=== PATIENT | female | born 1975 | race Caucasian/White ===

== ENCOUNTER 2021-04-30 18:11 | Emergency (ER) | payer OTHER ==
[~2021-04-30] VITALS: Ht 152.4 cm; Wt 74.8 kg
[~2021-04-30 18:11] MED LIST: ALBU2.5V8 IH
[2021-04-30] MEDS: IV NORMAL SALINE 1,000ML 1,000 ML IV ONE ×2 (18:30→19:30)
--- NOTE | 2021-04-30 18:32 | PHYS DOC ---
Past History Past Medical History: Asthma Past Surgical History: Alcohol Use: Occasionally Drug Use: None General Adult EDM: Chief Complaint: SHORTNESS OF BREATH HPI: HPI: 45-year-old female presents via EMS as a Covid positive patient with shortness of breath. The patient was diagnosed 4 days ago. She was seen at [facility] and admitted for a short period of time. She states that she was discharged with antibiotics for UTI, steroids, and some kind of blood thinner. She is not sure the names of the medications. She presents today because she has had difficulty eating and drinking anything. She feels more lethargic and tired. She is not sure if she has had a fever at home. Review of Systems: Review of Systems: Constitutional: Denies fever or chills. Body aches, fatigue. Eyes: Denies change in visual acuity HENT: Denies nasal congestion or sore throat Respiratory: shortness of breath Cardiovascular: Denies chest pain or edema GI: Denies abdominal pain, nausea, vomiting, bloody stools or diarrhea : Denies dysuria Musculoskeletal: Denies back pain or joint pain Integument: Denies rash Neurologic: Denies headache, focal weakness or sensory changes Endocrine: Denies polyuria or polydipsia Lymphatic: Denies swollen glands Psychiatric: Denies depression or anxiety Allergies: Allergies: Allergies Coded Allergies Type Severity Reaction Last Updated Verified Penicillins Allergy Intermediate Rash 06/27/14 Yes Physical Exam: PE: Constitutional: Well developed, well nourished, obese, no acute distress, pale. [] HENT: Normocephalic, atraumatic, bilateral external ears normal, oropharynx moist, no oral exudates, nose normal. [] Eyes: PERRLA, EOMI, conjunctiva normal, no discharge. [] Neck: Normal range of motion, no tenderness, supple, no stridor. [] Cardiovascular: Heart rate regular rhythm, no murmur [] Lungs & Thorax: Bilateral breath sounds clear to auscultation [] Abdomen: Bowel sounds normal, soft, no tenderness, no masses, no pulsatile masses. [] Skin: Warm, dry, no erythema, no rash. [] Back: No tenderness, no CVA tenderness. [] Extremities: No tenderness, no cyanosis, no clubbing, ROM intact, no edema. [] Neurologic: Alert and oriented X 3, normal motor function, normal sensory function, no focal deficits noted. [] Psychologic: Affect normal, judgement normal, mood normal. [] EKG: EKG: Sinus rhythm, rate 112, normal axis, diffuse mild ST elevation. [] Radiology/Procedures: Radiology/Procedures: [] Impressions: CTA Chest with contrast: Clinical History: Reason: SOB, tachycardia, Covid positive, + CTACHEST X 4 DAYS AGO / Spl. Instructions: / History: Shortness of breath. Axial helical images of the chest were obtained after the administration of 100 cc of IV Isovue-370 and timed appropriately for a pulmonary arterial study. Conventional axial reconstruction was performed in addition to coronal, sagittal and bilateral oblique MIP (maximum intensity projection). This study was ordered to detect possible pulmonary embolism. There are no filling defects to suggest pulmonary embolism. There is patchy opacity in the lung bases. There is a small pericardial effusion. There is no mediastinal or hilar lymphadenopathy. The thoracic aorta appears normal. Impression: 1. No evidence of pulmonary embolism. 2. Mild basilar pulmonary infiltrates could be early Covid pneumonia. 3. Mild pericardial effusion. Pericarditis is possible. Clinical correlation is suggested. End impression PQRS Compliance Statement: One or more of the following individualized dose reduction techniques were utilized for this examination: 1. Automated exposure control 2. Adjustment of the mA and/or kV according to patient size 3. Use of iterative reconstruction technique Electronically signed by: Simeon Tucker III, MD (04/30/2021 7:13 PM) [facility] DICTATED AND SIGNED BY: SIMEON TUCKER III, MD DATE: 04/30/211903 CC: BRYAN RAY DO; PCP,NO ~MTH0 0 Heart Score: C/O Chest Pain: N/A Risk Factors: Risk Factors: DM, Current or recent (<one month) smoker, HTN, HLP, family history of CAD, obesity. Risk Scores: Score 0 - 3: 2.5% MACE over next 6 weeks - Discharge Home Score 4 - 6: 20.3% MACE over next 6 weeks - Admit for Clinical Observation Score 7 - 10: 72.7% MACE over next 6 weeks - Early Invasive Strategies Course & Med Decision Making: Course & Med Decision Making Pertinent Labs and Imaging studies reviewed. (See chart for details) Given the patient's elevated heart rate, low blood pressure and Covid diagnosis I have ordered a repeat CT angiogram. It does not show pulmonary embolus, but she does have a small pericardial effusion suggestive of pericarditis. I will transfer the patient back to [facility] for admission and management. I have ordered 2 L of normal saline for the patient's tachycardia and low blood pressure. She is mapping at 70. EKG has some diffuse ST elevation suggestive of pericardial irritation. The patient does have an elevated white count of 15.9. Lactic acid and blood cultures have been drawn. The patient's lactic acid is 4.6. Her troponin is 0.629. I spoke with Dr. Storm and he has accepted patient for transfer admission. He has requested we cover her with Zosyn. She has an unknown penicillin allergy from childhood. I do not believe this is a contraindication to Zosyn. Her blood pressure has improved somewhat to 96/70 with a MAP of 80. The patient has maintained similar blood pressures throughout her stay in the ER. She is now transferring by ambulance to [facility]. [] Bernice Disclaimer: Bernice Disclaimer: This electronic medical record was generated, in whole or in part, using a voice recognition dictation system. Departure Departure: Impression: Primary Impression: COVID-19 Additional Impressions: Pericardial effusion Pericarditis Qualified Codes: I30.1 - Infective pericarditis Elevated troponin I level Disposition: 02 SHORT TERM HOSPITAL Condition: GUARDED Referrals: PCP,NO (PCP) BRYAN RAY DO Apr 30, 2021 18:32
[2021-04-30] MEDS ORDERED: CONTRAST GIVEN. MC PRN (18:45)
[2021-04-30] MEDS: IOHEXOL 350 MG/ML 100 ML VIAL. IV ONE (18:50)
[2021-04-30 19:08] LABS: BASO % 0 % (0-3); EOS % 0 % (0-3); HEMOGLOBIN 13.3 g/dL (12.0-15.5); LYMPH # 0.9 x10^3/uL (1.0-4.8); LYMPH % 6 % (24-48); MEAN CORPUSCULAR HEMOGLOBIN 30 pg (25-35); MEAN CORPUSCULAR HGB CONC 33 g/dL (31-37); MEAN CORPUSCULAR VOLUME 90 fL (79-100); MONO # 0.9 x10^3/uL (0.0-1.1); MONO % 6 % (0-9); NEUT % 88 % (31-73); PLATELET COUNT 342 x10^3/uL (140-400); RED BLOOD COUNT 4.48 x10^6/uL (3.50-5.40); RED CELL DISTRIBUTION WIDTH 13.2 % (11.5-14.5); WHITE BLOOD COUNT 15.9 x10^3/uL (4.0-11.0)
--- NOTE | 2021-04-30 19:08 | RAD ---
EXAM: AP View of the chest DATE: 04/30/2021 6:23 PM INDICATION: Reason: SHORTNESS OF BREATH, COVID + / Spl. Instructions: / History: COMPARISON: No Prior FINDINGS: The heart is not enlarged. Mediastinal and hilar contours are normal. Minimal bibasilar patchy opacities likely atelectasis or developing consolidation. No pleural effusion or pneumothorax. IMPRESSION: Minimal bibasilar patchy opacities likely atelectasis or developing consolidation. Electronically signed by: Faraz Verduzco MD (04/30/2021 7:06 PM) [facility]
--- NOTE | 2021-04-30 19:15 | RAD ---
CTA Chest with contrast: Clinical History: Reason: SOB, tachycardia, Covid positive, + CTACHEST X 4 DAYS AGO / Spl. Instructi ons: / History: Shortness of breath. Axial helical images of the chest were obtained after the administration of 100 cc of IV Isovue-370 a nd timed appropriately for a pulmonary arterial study. Conventional axial reconstruction was perform ed in addition to coronal, sagittal and bilateral oblique MIP (maximum intensity projection). This s tudy was ordered to detect possible pulmonary embolism. There are no filling defects to suggest pulmonary embolism. There is patchy opacity in the lung bases. There is a small pericardial effusion. There is no mediastinal or hilar lymphadenopathy. The thoracic aorta appears normal. Impression: 1. No evidence of pulmonary embolism. 2. Mild basilar pulmonary infiltrates could be early Covid pneumonia. 3. Mild pericardial effusion. Pericarditis is possible. Clinical correlation is suggested. End impression PQRS Compliance Statement: One or more of the following individualized dose reduction techniques were utilized for this examinat ion: 1. Automated exposure control 2. Adjustment of the mA and/or kV according to patient size 3. Use of iterative reconstruction technique Electronically signed by: Iggy Tucker III, MD (04/30/2021 7:13 PM) [facility]
[2021-04-30] MEDS: ONDANSETRON PF 4 MG/2 ML VIAL. IVP ONE (19:30)
[2021-04-30] MEDS: MORPHINE SULFATE 2 MG/ML DISP.SYRIN. IV ONE ×2 (19:30→21:51)
[2021-04-30 20:21] LABS: CALCIUM 8.7 mg/dL (8.5-10.1); GFR 60.5; POTASSIUM 4.3 mmol/L (3.5-5.1)
[2021-04-30 20:27] LABS: ALBUMIN/GLOBULIN RATIO 0.9 (1.0-1.7); TOTAL BILIRUBIN 0.4 mg/dL (0.2-1.0); TOTAL PROTEIN 6.2 g/dL (6.4-8.2)
[2021-04-30] MEDS: PIPERACILLIN/TAZOBACTAM 3.375 GM in IV NORMAL SALINE 50ML 50 ML IV ONE (20:30)
[2021-04-30] MEDS ORDERED: PIPERACILLIN/TAZOBACTAM 3.375 GM VIAL IV ONE (20:34)
[2021-04-30] MEDS ORDERED: IV NORMAL SALINE 50ML 50 ML ONE (20:34)
[2021-04-30 20:50] LABS: % LYMPHS 2 % (24-48); % MONOS 5 % (0-10); % SEGS 93 % (35-66); PLT ESTIMATE ADEQUATE (ADEQUATE)
[2021-04-30 21:13] VITALS: BP 91/60
--- NOTE | 2021-05-01 00:42 | EKG ---
[address] [address] Test Date: 2021-04-30 Test Time: 19:42:24 Pat Name: LAMONTE RAI Department: Room: Gender: F Us Marketing Director: : 1975 Requested By: BRYAN RAY Order Number: [id number] Reading MD: Corey Humphries MD Measurements Intervals [place] Rate: 112 P: 42 CO: 120 QRS: 56 QRSD: 66 T: 39 QT: 306 QTc: 419 Interpretive Statements SINUS TACHYCARDIA PERICARDITIS Electronically Signed On 05-01-2021 11:35:21 CDT by Corey Humphries MD
== END 2021-04-30 22:36 | disposition short-term general hospital (02) ==
LOC: ER 18:11
DX: U07.1 COVID-19 (principal); I31.3 Pericardial effusion (noninflammatory); I31.9 Disease of pericardium, unspecified; R77.8 Other specified abnormalities of plasma proteins; J45.909 Unspecified asthma, uncomplicated; Z88.0 Allergy status to penicillin
CPT/HCPCS: 36415; 71045; 71275; 80053; 83605; 84484; 85007; 85025; 87040; 93005; 96361; 96365; 96375; 96376; 99285; J2270; J2405; J2543; J7030; Q9967

== ENCOUNTER → 2021-06-18 | Outpatient (CLI) | payer OTHER ==
--- NOTE | 2021-06-18 14:44 | RAD ---
MR#: [id number] Date of Study: 06/18/2021 Ordering Physician: INEZ GALEAS, Referring Physician: TALITA FORTE Tech: RT Curly Quiroz) (N) APPROVED REPORT Test Type: Exercise Stress Nurse/Tech: RT Gabriella (Alva) (N) Test Indications: chest pain Cardiac History: none Medications: see ehr Medical History: covid 04/2021 Resting ECG: sinus rhythm Resting Heart Rate: 91 bpm Resting Blood Pressure: 126/72mmHg Pretest Chest Pain: None Nurse/Tech Notes Consent: The procedure was explained to the patient in lay terms. Informed consent was witnessed. Nithin eout was entered into [employer]. History and Stress Test performed by RT Curly Quiroz) (N) POST EXERCISE Reason for Termination: Fatigue Target HR: Yes Max HR: 165 bpm 85% of Maximum Predicted HR: 177 bpm Exercise duration: 5:51 min:sec, Stage Exercise capacity: 7METs Max Blood Pressure: 151/79mmHg INTERPRETATION Stress EKG Conclusion: No acute changes were noted. Imaging Protocol IMAGE PROTOCOL: Rest Tc-99m/stress Tc-99m 1 day Rest: Stress: Viability: Radiopharm.Tc99m [id number] Sestamibi Dose10.9mCi 31.5mCi Duration 15min. 10min. Img Date 06/18/2021 06/18/2021 Inj-Img [id number]. 60min. Post-Injection Exercise: 1 minute Rest Admin Site:IV - Left AntecubitalAdministrator: RT Gabriella (Alva)(N) Stress Admin Site: IV - Left AntecubitalAdministrator: RT Curly uQiroz)(N) STRESS DATA End Diast. Vol.51.0mlAv. Heart Rate98.0bpm End Syst. Vol.2.0mlCO Index BSA0.0L/min Myocardial Mass97.0gEject. Ygznzlgf42.0% Stress Rates Pk. Fill Rate3.67EDV/secLVtime Pk. Fill 85.37msec Pk. Empty Rate5.64ESV/secLVtime Pk. Upcnc714.19msec 1/3 Pk. Fill2.55EDV/sec Stress Scores Regional WT0.00Summed WT0.00 Regional WM0.00Summed WM0.00 The rest and stress images show normal perfusion, normal contraction and thickening. LV Perf. Quant 17 Seg. SSS0.00 17 Seg. SRS2.00 17 Seg. SDS0.00 Stress Defect Extent (% LAD)0.00Rest Defect Extent (% LAD)5.60Rev. Defect Extent (% LAD)0.00 Stress Defect Extent (% LCX) 0.00Rest Defect Extent (% LCX)0.00Rev. Defect Extent (% LCX)0.00 Stress Defect Extent (% RCA)0.00Rest Defect Extent (% RCA)0.00Rev. Defect Extent (% RCA)0.00 Stress Defect Extent (% ROMAN)0.00Rest Defect Extent (% ROMAN)3.90Rev. Defect Extent (% ROMAN)0.00 Other Information Quality:Good Risk Assessment: Low Risk Conclusion 1. No evidence of EKG changes with stress testing. 2. Average exercise capacity with 7.0 Mets achieved. 3. Normal perfusion at stress/rest. 4. Low risk study. 5. EF > 60%. Signed by : Inez Galeas, Electronically Approved : 06/18/2021 14:44:17
== END ==
LOC: NM 08:33
PROVIDERS: ATTEND Internal Medicine Cardiovascular Disease
DX: R07.9 Chest pain, unspecified (principal)
CPT/HCPCS: 78452; 93017; A9500